=== PATIENT | female | born 1970 | race Caucasian/White ===

== ENCOUNTER 2021-10-14 22:36 | Emergency (ER) | payer MEDICAID ==
[~2021-10-14] VITALS: Ht 170.2 cm; Wt 107.0 kg
[~2021-10-14 22:36] MED LIST: OMEPRAZOLE
[2021-10-14] MEDS ORDERED: KETOROLAC 30MG/ML VIAL IV STA (23:46)
[2021-10-15] MEDS ORDERED: SODIUM CHLORIDE 0.9% 1,000 ML IV ONE
[2021-10-15 00:01] LABS: HEMATOCRIT. 38.2 % (36.0-48.0); HEMOGLOBIN. 13.1 g/dL (12.0-16.0); MEAN CORPUSCULAR HEMOGLOBIN 26.1 pg (28.0-32.0); MEAN CORPUSCULAR VOLUME 76.2 fL (81.0-99.0); MEAN PLATELET VOLUME 8.4 fl (7.4-10.4); PLATELET 225 x1000/uL (130-400); RED BLOOD CELL COUNT 5.02 mill/uL (4.2-5.4); RED CELL DISTRIBUTION WIDTH 15.8 % (11.6-14.6)
[2021-10-15 00:10] LABS: CHLORIDE 108 mEq/L (98-107)
[2021-10-15] MEDS ORDERED: ONDANSETRON HCL 4MG/2ML INJ IV ONE (00:15)
[2021-10-15 00:34] LABS: HCG SCREEN NEGATIVE
[2021-10-15] MEDS ORDERED: METOCLOPRAMIDE HCL 10MG/2ML VIAL IV ONE (01:00)
[2021-10-15] MEDS ORDERED: ACET-2708 MT (03:11)
[2021-10-15 03:13] VITALS: BP 126/60
[2021-10-15 04:38] LABS: PLATELET ESTIMATE NORMAL
== END 2021-10-15 03:29 | disposition home or self-care (01) ==
LOC: ER 22:36
DX: R51.9 Headache, unspecified (principal); R07.89 Other chest pain; E87.6 Hypokalemia; I10 Essential (primary) hypertension
CPT/HCPCS: 36415; 71045; 80053; 83690; 84484; 84703; 85025; 93005; 96361; 96374; 96375; 99285; J1885; J2405; J7030

== ENCOUNTER 2023-10-24 19:21 | Emergency (ER) | payer MEDICAID ==
[~2023-10-24] VITALS: Ht 172.7 cm; Wt 118.0 kg
[~2023-10-24 19:21] MED LIST changes: +ACET-2708 MT
[2023-10-24 19:38] VITALS: O2SAT 98
[2023-10-24] MEDS ORDERED: KETOROLAC 30MG/ML VIAL IM ONE (21:00)
[2023-10-24] MEDS ORDERED: HYDROCODONE/ACETAMINOPHEN 5/325MG TABLET PO ONE (21:00)
[2023-10-24] MEDS ORDERED: TOPUD MT (21:50)
[2023-10-24 22:28] VITALS: BP 128/54; PULSE 86; RESP 16; TEMP 98.6
== END 2023-10-24 22:29 | disposition home or self-care (01) ==
LOC: ER 19:29
DX: M79.606 Pain in leg, unspecified (principal)
CPT/HCPCS: 93970; 96372; 99285; J1885; Z7610